=== PATIENT | male | born 1940 | race Caucasian/White ===

== ENCOUNTER 2019-08-04 08:00 | Outpatient (CLI) | payer BC, SELFPAY ==
--- NOTE | 2019-08-04 10:16 | DI.RAD_ITS ---
EXAM: XR SHOULDER RT COMPLETE 2+V INDICATION: shoulder injury. COMPARISON: MR SHOULDER RT WO CONTRAST from 02/03/2019 TECHNIQUE: 2D digital imaging was performed. FINDINGS: The humeral head is elevated with respect to the glenoid, articulating with the undersurface of the a cromion. The findings are consistent with a chronic rotator cuff tear. There is some narrowing of the glenohumeral joint as well as periarticular spurring. There is spurring at the greater tuberosity a nd undersurface of the acromion. Spurring is also noted at the lesser tuberosity. There are old right rib fractures. 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
== END 2019-08-04 08:20 ==
PROVIDERS: PCP Hospitalist; Visit Provider Student in an Organized Health Care Education/Training Program
DX: M25.511 Pain in right shoulder (principal); M75.101 Unspecified rotator cuff tear or rupture of right shoulder, not specified as traumatic; M19.011 Primary osteoarthritis, right shoulder
CPT/HCPCS: 73030

== ENCOUNTER 2021-09-21 03:11 | Outpatient (CLI) | payer BC, SELFPAY ==
[2021-09-21 22:56] LABS: COVID-19 RT-PCR UVMMC Result Negative (Negative)
== END 2021-09-21 03:12 | disposition home or self-care (01) ==
LOC: LBO 03:11
PROVIDERS: PCP Hospitalist; Visit Provider Nurse Practitioner Family
DX: Z20.822 Contact with and (suspected) exposure to COVID-19 (principal)
CPT/HCPCS: U0003

== ENCOUNTER 2023-08-04 04:04 | Outpatient (RCR) | payer BC, SELFPAY ==
[2023-08-04] MEDS: ZOLEDRONIC ACID/MANNITOL/WATER 5 MG/100 ML BTL 200 MG IVPB (13:10)
[2023-08-04] MEDS: Normal Saline Flush 10 ML SYR IVP (13:17)
== END 2023-08-14 23:59 | disposition home or self-care (01) ==
LOC: INF 04:04
PROVIDERS: PCP Family Medicine; Visit Provider Family Medicine
DX: M81.0 Age-related osteoporosis without current pathological fracture (principal)
CPT/HCPCS: 96365; J3489

== ENCOUNTER 2023-08-14 15:17 | Outpatient (REF) | payer BC, SELFPAY ==
[2023-08-14 12:39] LABS: Creatinine,Urine 37.67 mg/dL
[2023-08-14 12:41] LABS: Creatinine,24hr Ur 1.73 g/24hr (0.95-2.49); Total Volume 4600 ml
[2023-08-15 09:43] LABS: Calcium Urine 2.8 mg/dL (See Note); Calcium Urine 24 hr 129 mg/24hr (100-300); Timed Urine Volume 4600 mL
== END 2023-08-14 15:18 | disposition home or self-care (01) ==
LOC: LBN 15:17
PROVIDERS: PCP Family Medicine; Visit Provider Internal Medicine Endocrinology, Diabetes & Metabolism
DX: E29.1 Testicular hypofunction (principal)
CPT/HCPCS: 81050; 82340; 82570

== ENCOUNTER 2023-11-03 13:42 | Outpatient (CLI) | payer BC, SELFPAY ==
[2023-11-03 11:15] LABS: BUN 34 mg/dL (7-18); CREATININE 1.4 mg/dL (0.70-1.30); Estimated GFR 50.18 (mL/min/1.73m2)
== END 2023-11-03 13:43 | disposition home or self-care (01) ==
LOC: LBO 13:43
PROVIDERS: PCP Family Medicine; Visit Provider Nurse Practitioner Gerontology
DX: N40.0 Benign prostatic hyperplasia without lower urinary tract symptoms (principal); R79.89 Other specified abnormal findings of blood chemistry; R33.9 Retention of urine, unspecified
CPT/HCPCS: 36415; 84520; 82565

== ENCOUNTER 2024-09-20 03:24 | Outpatient (RCR) | payer BC, SELFPAY ==
[2024-09-20] MEDS: Acetaminophen 325 MG TAB 650 MG PO (13:04)
[2024-09-20] MEDS: ZOLEDRONIC ACID/MANNITOL/WATER 5 MG/100 ML BTL 300 MG IVPB (13:04)
[2024-09-20] MEDS: Normal Saline Flush 10 ML SYR IVP (13:05)
== END 2024-10-15 23:59 | disposition home or self-care (01) ==
LOC: INF 03:24
PROVIDERS: PCP Family Medicine; Visit Provider Family Medicine
DX: M81.0 Age-related osteoporosis without current pathological fracture (principal)
CPT/HCPCS: 96365; J3489